=== PATIENT | male | born 1960 | race Caucasian/White ===

== ENCOUNTER 2020-07-14 12:43 | Emergency (ER) | payer BC, SELFPAY ==
[2020-07-14 12:43] VITALS: BP 152/77; PULSE 60; RESP 15; TEMP 36.3; O2SAT 97; BMI 22.3
--- NOTE | 2020-07-14 12:43 | ECG_ITS ---
APPROVED REPORT Exam: Resting ECG HR:66 bpm ECG Measurements Heart Rate 66 AXES NH 170 P 63 QRSd 88 QRS -6 QT 408 T 68 QTc 427 Conclusion Sinus rhythm with marked sinus arrhythmia Otherwise normal ECG Electronically signed by : Abdirashid Sumner, 07/16/2020 07:26:23
--- NOTE | 2020-07-14 12:44 | XR_ITS ---
PROCEDURE: XR CHEST 2V Referring Doctor: Juan M Barajas Patient Age:60Y CLINICAL HISTORY: cp Left-sided chest pain for a few days. Pain into shoulder and neck COMPARISON: No exams were available for comparison FINDINGS: PA and lateral chest performed today with no previous chest studies for comparison Lungs are well expanded and clear with nothing definitely acute. The cardiomediastinal silhouette and pulmonary vascularity are within normal limits. The lungs are clear without infiltrates, suspicious nodules, or pleural effusions.. No pneumothorax No acute bony abnormalities.. A specifically the left ribs appear intact there is some mild degenerative changes T-spine. Developing anterior marginal osteophytes at the mid T-spine but subtle gradual levo curvature through the cervical thoracic junction region through to the mid T-spine noted. IMPRESSION: Lungs clear with nothing definitely acute. No active the cardiopulmonary disease evident Dictated by: Ryley Lynn MD 07/14/2020 16:28 Ryley Lynn MD in [place] 07/14/2020 16:28
--- NOTE | 2020-07-14 12:53 | PC.NURSE ---
pt to rad.
[2020-07-14 12:55] LABS: Basophils # 0.1 K/mm3 (0-0.2); Basophils % 0.8 % (0.1-2.0); Eosinophils # 0.2 K/mm3 (0.0-0.4); Eosinophils % 2.1 % (0.1-12.0); Hematocrit 43.7 % (42.0-52.0); Hemoglobin 14.4 g/dL (14.1-18.0); Lymphocytes # 2.1 K/mm3 (0.7-4.5); Lymphocytes % 28.2 % (10-50); Mean Corpuscular Hemoglobin 28.5 pg (27.0-31.2); Mean Corpuscular Volume 86.3 fl (80-94); Mean Platelet Volume 8.3 fl (7.4-10.4); Monocytes # 0.5 K/mm3 (0.1-1.0); Monocytes % 7.1 % (1.7-9.3); Neutrophils # 4.6 K/mm3 (1.8-7.8); Neutrophils % 61.7 % (37.0-80.0); Platelet Count 288 K/mm3 (142-424); Red Blood Count 5.06 M/mm3 (4.60-6.20); Red Cell Distribution Width 13.9 % (11.5-17.5); White Blood Count 7.4 K/mm3 (4.8-10.8)
--- NOTE | 2020-07-14 12:56 | [facility].EDCP ---
ED Disposition Clinical Impression: Atypical chest pain Disposition: Home, Self-Care Condition on Discharge: Good Prescriptions: Cyclobenzaprine HCl [Cyclobenzaprine 5mg Tab] 5 mg PO Q8HP PRN #30 tab PRN Reason: pain/spasm Prescription Printed Ketorolac Tromethamine [Toradol 10mg tablet] 10 mg PO Q6H 5 Days #20 tab Prescription Printed Referrals: Juan M Muro [Primary Care Provider] - - Critical Care Critical Care Time: No Attestation: On 07/14/20, the high probability of a clinically significant, sudden or life threatening deterioration of the following system(s) required my full and direct attention, intervention and personal management. The time I documented below is in addition to time spent performing reported procedures but includes the following listed in this critical care notation. Medical Decision Making - Medical Records Medical records reviewed: Yes: I reviewed the patient's medical records. - Aric Inquiry Pt receiving controlled substance: No Vital Signs: 07/14/20 12:43 07/14/20 15:11 07/14/20 15:48 Temperature 97.4 F L Temperature Source Oral Pulse Rate [Left Radial] 60 61 62 Respiratory Rate 15 Blood Pressure [Right Arm] 152/77 H 149/88 H 147/88 H Blood Pressure Mean [Right Arm] 102 108 107 Blood Pressure Source [Right Arm] Automatic Cuff Automatic Cuff Blood Pressure Position [Right Arm] Sitting Sitting 02 Sat by Pulse Oximetry 97 97 96 Oxygen Delivery Method Room Air Room Air Room Air - Lab Data Lab results reviewed: Yes: I reviewed the patient's lab results. Lab Results 07/14/20 12:45: WBC 7.4, RBC 5.06, Hgb 14.4, Hct 43.7, MCV 86.3, MCH 28.5, MCHC 33.0, RDW 13.9, Plt Count 288, MPV 8.3, Neut % (Auto) 61.7, Lymph % (Auto) 28.2, Turner % (Auto) 7.1, Eos % (Auto) 2.1, Baso % (Auto) 0.8, Neut # (Auto) 4.6, Lymph # (Auto) 2.1, Turner # (Auto) 0.5, Eos # (Auto) 0.2, Baso # (Auto) 0.1 07/14/20 12:45: Sodium 141, Potassium 4.1, Chloride 107, Carbon Dioxide 26, Anion Gap 12.1, BUN 20, Creatinine 1.40 H, Estimated Creat Clear 57, Estimated GFR 52 L, Est GFR ( Amer) 62, Glucose 104 H, Calcium 9.2, Troponin I < 0.01 07/14/20 12:45: NT-Pro-B Natriuret Pep 251 H 07/14/20 15:15: Troponin I < 0.01 Result diagrams: 07/14/20 12:45 07/14/20 12:45 Orders (Tests/Meds): ED MEDICATIONS Generic Name Dose Route Start Last Admin Trade Name Freq PRN Reason Stop Dose Admin Nitroglycerin 0.4 mg 07/14/20 12:52 Nitroglycerin 0.4mg Sl Tablet SL 08/13/20 12:51 [id number] PRN Chest Pain Discontinued Medications Generic Name Dose Route Start Last Admin Trade Name Freq PRN Reason Stop Dose Admin Aspirin 324 mg 07/14/20 12:58 07/14/20 12:59 Aspirin 81mg Chewable Tablet PO 07/14/20 12:59 324 mg ONCE ONE Administration Ketorolac Tromethamine 30 mg 07/14/20 14:17 07/14/20 14:38 Ketorolac 30mg/Ml Vial IV 07/14/20 14:18 30 mg ONCE ONE Administration Orphenadrine Citrate 60 mg 07/14/20 14:17 07/14/20 14:38 Orphenadrine Citrate 60mg/2ml Vial IV 07/14/20 14:18 60 mg ONCE ONE Administration ORDERS Category Date Time Status XR chest 2V Stat Exams 07/14/20 12:44 Taken Troponin I Q3H Lab 07/14/20 18:45 Ordered - Radiology Data #1 Image(s): Chest Image Reviewed: Yes I reviewed the patient's radiology image Preliminary Findings: Normal/NAD - ECG Data Tracing #1 ECG initial impression date: 07/14/20 ECG initial impression time: 12:43 ECG normal with no acute: arrhythmias, ischemia, conduction abnormalities, chamber hypertrophy Normal Sinus Rhythm: Yes Chest Pain HPI - General Chief Complaint: Chest Pain Stated Complaint: chest pain Time Seen by Provider: 07/14/20 12:50 Mode of Arrival: Ambulatory Source of Information: Patient Limitations: No Limitations Description of Symptoms (Recalled from ER Triage Doc. by RN): c/o left chest pain that goes into his left neck, states this pain started last night but incre
[2020-07-14 12:57] LABS: Chloride 107 mmol/L (98-107); Sodium 141 mmol/L (136-145)
[2020-07-14 12:58] LABS: Potassium 4.1 mmoL/L (3.5-5.1)
[2020-07-14 13:00] LABS: Blood Urea Nitrogen 20 mg/dl (9-20); Creatinine Clearance Estimated 57 mL/min (50-200); Estimated Glomerular Filt Rate 52 ml/min (>60); GFR (African American) 62 ML/MIN (>60)
[2020-07-14 13:01] LABS: Anion Gap 12.1 mEq/L (5-15); Calcium 9.2 mg/dl (8.4-10.2); Carbon Dioxide 26 mmol/L (22.0-30.0); Glucose 104 mg/dl (74-100)
--- NOTE | 2020-07-14 13:16 | XR_ITS ---
PROCEDURE: XR CERVICAL SPINE 3V Referring Doctor: Juan M Barajas Patient Age:60Y CLINICAL INDICATION: neck pain neck pain. Left shoulder pain shoots up neck COMPARISON: CR XR CHEST 2V from 07/14/2020 FINDINGS: Cervical spine four view were performed today: AP, lateral, open-mouth odontoid, and added lateral swimmer's view Lateral film shows satisfactory, normal alignment. But only P view there is a levocurvature at the cervical thoracic junction. Could reflect positioning and/or splinting due to pain or spasm. C1-C2 relationships appear normal. Vertebral bodies are intact. Mild degenerative changes C-spine. C3/4: Scant 1.5 mm posterior overhang and retrolisthesis of of C3 on C4 vertebra most likely due to some mild degenerative facet changes along with some of question some early minor hypertrophic ridging at the posterior inferior corner of C3. The disc space fairly well maintained at C3/4. C4/5 disc intact, unremarkable. C5/6 and C6/7. Mild degenerative disc space narrowing both levels. Prevertebral soft tissues appear normal but minimal calcification left carotid bifurcation. Question some mild mucosal thickening at the right maxillary sinus. Apices of the lungs are clear IMPRESSION: No acute fracture nor significant subluxation.. Only note Mild levocurvature cervical thoracic region, and mild degenerative changes cervical spine: . Mild degenerative disc space narrowing C5/6-C6/7. . Suggestion of scant 1-1.5 mm retrolisthesis of C3 on C4 most likely due to the mild degenerative facet changes this level. Dictated by: Ryley Lynn MD 07/14/2020 16:24 Ryley Lynn MD in [facility] 07/14/2020 16:24
[2020-07-14 13:17] LABS: NT Pro Brain Natriuretic Pep. 251 pg/mL (0-125)
[2020-07-14 13:21] LABS: Troponin I < 0.01 ng/ml (0.00-0.034)
--- NOTE | 2020-07-14 13:29 | PC.NURSE ---
Pt back to rad at this time
[2020-07-14 15:11] VITALS: BP 149/88; PULSE 61; O2SAT 97
[2020-07-14 15:44] LABS: Troponin I < 0.01 ng/ml (0.00-0.034)
[2020-07-14 15:48] VITALS: BP 147/88; PULSE 62; O2SAT 96
[2020-07-14 16:45] VITALS: BP 167/81; PULSE 64; RESP 20; TEMP 36.3; O2SAT 98
== END 2020-07-14 16:45 | disposition home or self-care (01) ==
PROVIDERS: Emergency Provider Emergency Medicine; PCP Family Medicine
DX: R07.89 Other chest pain (principal); M25.512 Pain in left shoulder
CPT/HCPCS: 36415; 71046; 72040; 80048; 83880; 84484; 85025; 93005; 96374; 96375; 99283